=== PATIENT | male | born 1975 | race Caucasian/White ===

== ENCOUNTER 2020-01-19 14:58 | Emergency (ER) | payer MEDICAID ==
[~2020-01-19] VITALS: Ht 177.8 cm; Wt 93.0 kg
[2020-01-19] MEDS ORDERED: NITROGLYCERIN 0.4 MG/TAB BOTTLE SL ONE ×2 (15:45→16:05)
[2020-01-19] MEDS ORDERED: ASPIRIN 325 MG TABLET PO ONE (15:45)
[2020-01-19 15:53] LABS: BASOPHILS # (AUTO) 0.1 K/uL (0.0-8.0); BASOPHILS % (AUTO) 0.8 % (0.0-2.0); EOSINOPHILS # (AUTO) 0.1 K/uL (0.0-0.7); HEMATOCRIT 40.9 % (36.7-47.1); HEMOGLOBIN 14.1 g/dL (12.5-16.3); LYMPHOCYTES # (AUTO) 1.4 K/uL (20.0-40.0); LYMPHOCYTES % (AUTO) 21.2 % (20.5-51.5); MEAN CORPUSCULAR HEMOGLOBIN 31.3 uug (23.8-33.4); MEAN CORPUSCULAR HGB CONC 34 g/dL (32.5-36.3); MEAN CORPUSCULAR VOLUME 91.3 fL (73.0-96.2); MONOCYTES # (AUTO) 0.4 K/uL (2.0-10.0); MONOCYTES % (AUTO) 6.9 % (0.0-11.0); NEUTROPHILS # (AUTO) 4.5 K/uL (1.8-8.9); NEUTROPHILS % (AUTO) 70.1 % (38.5-71.5); PLATELET COUNT (AUTO) 191 K/uL (152-348); RED BLOOD CELL COUNT(AUTO) 4.49 MIL/uL (4.06-5.63); WHITE BLOOD COUNT (AUTO) 6.5 K/uL (3.6-10.2)
[2020-01-19 15:58] LABS: POTASSIUM 4.7 mmol/L (3.5-5.1)
[2020-01-19] MEDS ORDERED: ASPIRIN 325 MG TABLET ONE (16:05)
[2020-01-19 16:11] LABS: BILIRUBIN,DIRECT 0.2 mg/dL (0.0-0.2); BILIRUBIN,TOTAL 0.6 mg/dL (0.2-1.0); TOTAL PROTEIN, SERUM 6.8 g/dL (6.4-8.2)
[2020-01-19] MEDS ORDERED: NITROGLYCERIN OINT 1 GM PACKET TP ONE ×2 (17:00→17:49)
[2020-01-19 17:52] VITALS: BP 135/76
[2020-01-19] MEDS ORDERED: LORAZEPAM 2 MG/1 ML VIAL ONE (17:55)
[2020-01-19] MEDS ORDERED: LORAZEPAM 2 MG/1 ML VIAL IV ONE (18:00)
[2020-01-19] MEDS ORDERED: MISCELLANEOUS MED XX ONE (20:15)
[2020-01-19] MEDS ORDERED: ATORVASTATIN 40 MG TABLET PO SCH (20:15)
[2020-01-19] MEDS ORDERED: GABAPENTIN 400 MG CAPSULE PO ONE (20:15)
[2020-01-19] MEDS ORDERED: GABAPENTIN 400 MG CAPSULE ONE (20:29)
[2020-01-19] MEDS ORDERED: ATORVASTATIN 40 MG TABLET ONE (20:37)
--- NOTE | 2020-01-19 20:48 | NUR ---
Report given to Mayda Cabezas.
--- NOTE | 2020-01-19 21:07 | NUR ---
Ambulance arrived to ER to transport patient to [facility]. Report and documentation given to EMT.
== END 2020-01-19 21:09 | disposition short-term general hospital (02) ==
LOC: ER 14:58
DX: R07.89 Other chest pain (principal); R06.02 Shortness of breath; I25.2 Old myocardial infarction; I25.10 Atherosclerotic heart disease of native coronary artery without angina pectoris; E11.9 Type 2 diabetes mellitus without complications; F17.200 Nicotine dependence, unspecified, uncomplicated; Z79.82 Long term (current) use of aspirin; Z79.899 Other long term (current) drug therapy
CPT/HCPCS: 36415; 71045; 80048; 80076; 82962; 83880; 84484; 85025; 85379; 85730; 93005 ×2; 96374; 99285; J2060; 70030-TC; A4663